=== PATIENT | male | born 1990 | race Caucasian/White ===

== ENCOUNTER 2018-04-30 20:41 | Emergency (ER) | payer OTHER ==
[~2018-04-30] VITALS: Ht 170.2 cm; Wt 104.3 kg
[~2018-04-30 20:41] MED LIST: PEPCID40 MG PO; PREDNISONE20 MG PO
== END 2018-05-01 00:04 | disposition home or self-care (01) ==
LOC: ED 20:41
DX: R10.9 Unspecified abdominal pain (principal)
CPT/HCPCS: 74177; 80053; 81001; 83690; 85025; 99284; Q9967

== ENCOUNTER 2018-11-30 18:05 | Emergency (ER) | payer OTHER ==
[~2018-11-30] VITALS: Ht 170.2 cm; Wt 104.3 kg
[2018-11-30] MEDS ORDERED: CIPRO500 MG PO (20:29)
[2018-11-30] MEDS ORDERED: NORCO 5-325 TA1 EACH PO (20:29)
== END 2018-11-30 20:45 | disposition home or self-care (01) ==
LOC: ED 18:05
DX: N45.1 Epididymitis (principal)
CPT/HCPCS: 76870; 81001; 96372; 99284-25; J1885